=== PATIENT | male | born 1995 | race Caucasian/White ===

== ENCOUNTER 2017-02-18 14:47 | Inpatient (IN) | payer OTHER ==
[2017-02-18] MEDS ORDERED: morphine 4 MG/ML VIAL IV (15:30)
[2017-02-18] MEDS ORDERED: NACL 0.9% 3 ML SYG IV (15:30)
[2017-02-18] MEDS ORDERED: ONDANSETRON 4 MG INJ IV (15:30)
[2017-02-18] MEDS ORDERED: HYDROCODONE/APAP (5/325) TAB PO (15:30)
[2017-02-18] MEDS: SOD CHLORIDE 0.9% 1,000 ML IV (17:04)
[2017-02-18] MEDS: ACETAMINOPHEN 325 MG TAB PO (20:29)
[2017-02-18] MEDS: PIPER-TAZO 3.375 GM IV (PMX) 50 ML IVPB (21:49)
[2017-02-19] MEDS: SOD CHLORIDE 0.9% 1,000 ML IV (01:46)
[2017-02-19 05:51] LABS: ADD MAN DIFF? NO
[2017-02-19 05:53] LABS: BASOPHILS % 0.3 % (0.0-2.0); EOSINOPHILS # 0.1 10^3/ul (0.0-0.5); EOSINOPHILS % 1.9 % (0.0-7.0); HEMATOCRIT 35.7 % (42.0-52.0); HEMOGLOBIN 11.8 g/dl (14.0-18.0); LYMPHOCYTES # 1.2 10^3/ul (0.8-2.9); LYMPHOCYTES % 20.4 % (18.0-55.0); MEAN CORPUSCULAR HEMOGLOBIN 27.4 pg (29.0-33.0); MEAN CORPUSCULAR HGB CONC 33.1 g/dl (32.0-37.0); MEAN CORPUSCULAR VOLUME 82.8 fl (72.0-104.0); MEAN PLATELET VOLUME 9.9 fl (7.4-10.4); MONOCYTE # 0.4 10^3/ul (0.3-0.9); MONOCYTES % 6.7 % (0.0-13.0); NEUTROPHIL # 4.2 10^3/ul (1.6-7.5); NEUTROPHILS % 70.4 % (30.0-74.0); PLATELET COUNT 274 10^3/UL (140-415); RED BLOOD COUNT 4.31 10^6/ul (4.70-6.10); RED CELL DISTRIBUTION WIDTH 14.5 % (11.5-14.5)
[2017-02-19 05:53] LABS: WHITE BLOOD COUNT 5.9 10^3/ul (4.8-10.8)
[2017-02-19 06:18] LABS: INR 1.12; PROTIME 14.6 Sec (11.9-14.9); PT RATIO 1.1
[2017-02-19 06:19] LABS: PARTIAL THROMBOPLASTIN TIME 34.2 Sec (25.0-35.0)
[2017-02-19] MEDS: PIPER-TAZO 3.375 GM IV (PMX) 50 ML IVPB (06:21)
[2017-02-19 06:22] LABS: CHOL/HDL RATIO 2.5 RATIO; CHOLESTEROL 107 mg/dl (100-200); HDL CHOLESTEROL 42 mg/dl (30-63); LDL CHOLESTEROL,CALCULATED 53 mg/dl; TRIGLYCERIDES 61 mg/dl (0-149)
[2017-02-19 06:22] LABS: PHOSPHORUS 4.5 mg/dl (2.5-4.9)
[2017-02-19 06:25] LABS: ALANINE AMINOTRANSFERASE 47 IU/L (13-69); ALBUMIN 3.7 g/dl (3.3-4.9); ALBUMIN/GLOBULIN RATIO 1.12; ALKALINE PHOSPHATASE 60 IU/L (42-121); ANION GAP 12 (8-16); ASPARTATE AMINO TRANSFERASE 28 IU/L (15-46); BILIRUBIN,INDIRECT 0.5 mg/dl (0-1.1); BILIRUBIN,TOTAL 0.5 mg/dl (0.2-1.3); BLOOD UREA NITROGEN 11 mg/dl (7-20); CALCIUM 8.5 mg/dl (8.4-10.2); CARBON DIOXIDE 25 mmol/L (21-31); CHLORIDE 108 mmol/L (97-110); CREATININE 0.91 mg/dl (0.61-1.24); GLUCOSE 88 mg/dl (70-220); POTASSIUM 3.8 mmol/L (3.5-5.1); SODIUM 141 mmol/L (135-144)
[2017-02-19 06:38] LABS: FREE T4 (FREE THYROXINE) 1.24 ng/dl (0.79-2.35)
[2017-02-19 07:30] LABS: HEMOGLOBIN A1C 5.3 % (0-5.9)
[2017-02-19 10:39] LABS: IRON 51 ug/dl (35-150)
[2017-02-19 10:48] LABS: % IRON SATURATION 19 % SAT (22-52); TOTAL IRON BINDING CAPACITY 275 ug/dl (241-421)
[2017-02-19 14:22] LABS: FERRITIN 48.3 ng/ml (17.9-464.0)
== END 2017-02-19 14:53 | disposition home or self-care (01) | DRG 445 ==
LOC: MS2 14:47
DX: K80.20 Calculus of gallbladder without cholecystitis without obstruction (principal); Z68.42 Body mass index [BMI] 45.0-49.9, adult; E66.01 Morbid (severe) obesity due to excess calories
CPT/HCPCS: 80053; 80061; 82728; 83036; 83540; 83735; 84100; 84439; 84443; 85025; 85610; 85730